=== PATIENT | female | born 1955 | race Caucasian/White ===

== ENCOUNTER 2016-08-21 13:10 | Inpatient (IN) | payer OTHER ==
[~2016-08-21] VITALS: Ht 157.5 cm; Wt 54.4 kg
[~2016-08-21 13:10] MED LIST: FLOXIN OTIC SOLN5 ML LEFT EAR; NAPROXEN500 MG PO; NEURONTIN100 MG PO; SEROQUEL50 MG PO
[2016-08-21 15:13] LABS: EOSINOPHIL (%) 0.2 % (0-5); HEMATOCRIT 23.6 % (36.0-46.0); IMMATURE GRANULOCYTE (%) 0.5 % (0.0-0.7); INSTRUMENT ABS NEUTROPHIL CT 4.1 K/uL; LYMPHOCYTE COUNT 1.7 K/uL (1.0-2.8); MCH 34.6 PG (29.0-34.0); MCHC 34.3 G/DL (30.0-36.0); MCV 100.9 FL (83-99); MEAN PLAT.VOLUME 9.9 uM^3 (9.5-12.4); MONOCYTE COUNT 0.6 K/uL (0-0.8); NEUTROPHIL (%) 63.5 % (45-76); NEUTROPHIL COUNT 4.1 K/uL (1.8-6.4); PLATELET COUNT 78 K/uL (156-360); RBC DIS.WIDTH-CV 13.2 % (11.8-14.6); RBC DIS.WIDTH-SD 48.8 % (39-53); RED BLOOD COUNT 2.34 M/uL (3.80-5.20); WHITE BLOOD COUNT 6.5 K/uL (4.1-10.2)
[2016-08-21 15:21] LABS: CHLORIDE 102 mEq/L (99-109); POTASSIUM 4.1 mEq/L (3.7-5.4); SODIUM 136 mEq/L (136-147)
[2016-08-21 15:22] LABS: AMYLASE 93 IU/L (1-118)
[2016-08-21 15:24] LABS: GLUCOSE 115 mg/dL (70-99)
[2016-08-21 15:25] LABS: ANION GAP 10 MEQ/L (2-14)
[2016-08-21 15:27] LABS: ALKALINE PHOSPHATASE 64 IU/L (3-129); GFR ESTIMATE (CALCULATED) > 59 mL/min/
[2016-08-21 15:28] LABS: UREA NITROGEN (BUN) 20 mg/dL (9-23)
[2016-08-21 15:31] LABS: LIPASE 43 U/L (1.0-51.0)
[2016-08-21 15:52] LABS: ADD MIUA? YES; BILIRUBIN NEGATIVE; BLOOD SMALL; COLOR AMBER ((YELLOW)); GLUCOSE (STRIP) NEGATIVE; KETONES 5; LEUKOCYTES NEGATIVE; NITRITE NEGATIVE; PROTEIN (STRIP) 30; SPECIFIC GRAVITY 1.016 (1.000-1.030)
[2016-08-21 16:25] LABS: BACTERIA 1+ /HPF; CASTS PRESENT /LPF; CRYSTALS NONE SEEN; EPITHELIAL CELLS 2+ /HPF; HYALINE CASTS 0-5 /LPF; MUCUS RARE /LPF
[2016-08-21] MEDS ORDERED: SEROQUEL12.5 MG PO (19:14)
[2016-08-21] MEDS ORDERED: B COMPLETE1 EACH PO (19:15)
[2016-08-21] MEDS ORDERED: ATARAX,VISTARIL25 MG PO (19:15)
[2016-08-21] MEDS ORDERED: MELATIN3 MG PO (19:16)
[2016-08-21 22:12] LABS: FERRITIN 139 NG/ML (10-291)
[2016-08-21 23:59] LABS: ABSOLUTE RETICULOCYTE CT. 0.1 M/uL (0.02-0.08); IMM.RETIC FRACTION 10.9 % (3-19); RETIC HGB EQUIVALENT 37.3 (28-36); RETICULOCYTE COUNT 3.8 % (0.5-1.8)
[2016-08-22] VITALS (8 sets, daily range): BP systolic 94–153; BP diastolic 46–82
[2016-08-22 06:47] LABS: GLOBULINS 4.7 G/DL (2.3-3.5)
[2016-08-22 07:04] LABS: HEMATOCRIT 20.3 % (36.0-46.0); MCH 35.2 PG (29.0-34.0); MCHC 34.5 G/DL (30.0-36.0); PLATELET COUNT 65 K/uL (156-360); RBC DIS.WIDTH-CV 13.1 % (11.8-14.6); RBC DIS.WIDTH-SD 48.2 % (39-53); RED BLOOD COUNT 1.99 M/uL (3.80-5.20); WHITE BLOOD COUNT 4.8 K/uL (4.1-10.2)
[2016-08-22 07:18] LABS: INTER. NORMALIZED RATIO 1.6; PROTHROMBIN TIME 16.7 (9.2-11.2); PTT 29.7 (25-32)
[2016-08-22 07:30] LABS: ALKALINE PHOSPHATASE 53 IU/L (3-129); ANION GAP 8 MEQ/L (2-14); CHLORIDE 106 MEQ/L (99-109); DIRECT BILIRUBIN 1.8 mg/dL (0.0-0.3); GFR ESTIMATE (CALCULATED) > 59 mL/min/; GLUCOSE 128 mg/dL (70-99); POTASSIUM 3.7 MEQ/L (3.7-5.4); SAMPLE HEMOLYSIS CHECK 0; SAMPLE ICTERIC CHECK 1; SAMPLE LIPEMIA CHECK 0; SODIUM 137 MEQ/L (136-147); TOTAL BILIRUBIN 4.4 MG/DL (0.0-1.0); UREA NITROGEN (BUN) 18 mg/dL (9-23)
[2016-08-23] VITALS (19 sets, daily range): BP systolic 109–163; BP diastolic 53–74
[2016-08-23 06:59] LABS: INTER. NORMALIZED RATIO 1.5; PTT 26.7 (25-32)
[2016-08-23 07:08] LABS: HEMATOCRIT 18.2 % (36.0-46.0); MCH 35.4 PG (29.0-34.0); MCHC 34.1 G/DL (30.0-36.0); MEAN PLAT.VOLUME 9.9 uM^3 (9.5-12.4); NRBC (%) 0.4 /100 WBC (0-0); RBC DIS.WIDTH-CV 13.1 % (11.8-14.6); RBC DIS.WIDTH-SD 49.8 % (39-53); RED BLOOD COUNT 1.75 M/uL (3.80-5.20); WHITE BLOOD COUNT 5.6 K/uL (4.1-10.2)
[2016-08-23 07:15] LABS: PLATELET COUNT 104 K/uL (156-360)
[2016-08-23 17:00] LABS: INTER. NORMALIZED RATIO 1.6; PROTHROMBIN TIME 16.1 (9.2-11.2)
[2016-08-23 17:18] LABS: BASELINE PT 16.1 SEC (9.9-11.1)
[2016-08-24 00:19] VITALS: BP 137/67
[2016-08-24 01:19] VITALS: BP 136/68
[2016-08-24 08:01] VITALS: BP 162/74
[2016-08-24 15:59] VITALS: BP 169/74
[2016-08-24 16:25] LABS: INTER. NORMALIZED RATIO 1.8; PROTHROMBIN TIME 18.3 (9.2-11.2); PTT 28.7 (25-32)
[2016-08-24 20:17] LABS: HEMATOCRIT 29.2 % (36.0-46.0); MCH 33.7 PG (29.0-34.0); MCHC 34.9 G/DL (30.0-36.0); MEAN PLAT.VOLUME 10.1 uM^3 (9.5-12.4); PLATELET COUNT 123 K/uL (156-360); RBC DIS.WIDTH-CV 15.7 % (11.8-14.6); RBC DIS.WIDTH-SD 54.2 % (39-53); WHITE BLOOD COUNT 6.6 K/uL (4.1-10.2)
[2016-08-24 20:19] LABS: MCV 96.4 FL (83-99); RED BLOOD COUNT 3.03 M/uL (3.80-5.20)
[2016-08-25 00:07] VITALS: BP 109/56
[2016-08-25 08:39] LABS: ALBUMIN 3.75 G/DL (3.6-4.9); ALBUMIN PERCENT 48.1 %; ALPHA-1 GLOBULIN 0.25 G/DL (0.15-0.40); ALPHA-1 PERCENT 3.2 %; ALPHA-2 GLOBULIN 0.56 G/DL (0.45-0.85); ALPHA-2 PERCENT 7.2 %; BETA PERCENT 6.5 %; SERUM GEL NO. 58-3
[2016-08-25 08:40] VITALS: BP 125/66
[2016-08-25 11:00] LABS: INTER. NORMALIZED RATIO 1.9; PROTHROMBIN TIME 19.4 (9.2-11.2); PTT 27.8 (25-32)
[2016-08-25 11:30] LABS: HCV RNA (LOG IU/mL) 2.55 (<1.18)
[2016-08-25 12:20] VITALS: BP 118/53
[2016-08-25 14:37] LABS: IFE GEL NO. 55-2
[2016-08-25 16:15] VITALS: BP 113/74
[2016-08-25 23:35] VITALS: BP 150/71
[2016-08-26 06:48] LABS: HEMATOCRIT 29.2 % (36.0-46.0); MCH 33.8 PG (29.0-34.0); MCHC 33.9 G/DL (30.0-36.0); MCV 99.7 FL (83-99); MEAN PLAT.VOLUME 9.8 uM^3 (9.5-12.4); PLATELET COUNT 127 K/uL (156-360); RBC DIS.WIDTH-CV 16.6 % (11.8-14.6); RBC DIS.WIDTH-SD 56.2 % (39-53); RED BLOOD COUNT 2.93 M/uL (3.80-5.20)
[2016-08-26 06:51] LABS: WHITE BLOOD COUNT 11.5 K/uL (4.1-10.2)
[2016-08-26 07:07] LABS: ANION GAP 4 MEQ/L (2-14); CHLORIDE 104 MEQ/L (99-109); GFR ESTIMATE (CALCULATED) > 59 mL/min/; GLUCOSE 149 mg/dL (70-99); POTASSIUM 4.2 MEQ/L (3.7-5.4); SAMPLE HEMOLYSIS CHECK 0; SAMPLE ICTERIC CHECK 1; SAMPLE LIPEMIA CHECK 0; SODIUM 137 MEQ/L (136-147); UREA NITROGEN (BUN) 17 mg/dL (9-23)
[2016-08-26 08:14] VITALS: BP 157/74
[2016-08-26 16:12] VITALS: BP 145/70
[2016-08-27] VITALS: BP 154/67
[2016-08-27 06:50] LABS: HEMATOCRIT 29.6 % (36.0-46.0); MCH 33.3 PG (29.0-34.0); MCHC 33.1 G/DL (30.0-36.0); MCV 100.7 FL (83-99); MEAN PLAT.VOLUME 9.8 uM^3 (9.5-12.4); PLATELET COUNT 114 K/uL (156-360); RBC DIS.WIDTH-CV 16.6 % (11.8-14.6); RBC DIS.WIDTH-SD 58.8 % (39-53); RED BLOOD COUNT 2.94 M/uL (3.80-5.20); WHITE BLOOD COUNT 11.2 K/uL (4.1-10.2)
[2016-08-27 08:00] VITALS: BP 151/79
[2016-08-27] MEDS ORDERED: VIGAMOX 0.60 DROP/3 BOTH EYES (11:16)
[2016-08-27] MEDS ORDERED: PREDNISONE20 MG PO (11:17)
== END 2016-08-27 15:08 | disposition home or self-care (01) | DRG 809 ==
LOC: EME 13:10 → EDOF 21:17 → 5SOUTH 21:17
PROVIDERS: Internal Medicine; Internal Medicine Hematology & Oncology; Physician Assistant
PROC: 30233L1 Transfusion of Nonautologous Fresh Plasma into Peripheral Vein, Percutaneous Approach (ICD-10-PCS; principal; 2016-08-22)
PROC: 30233R1 Transfusion of Nonautologous Platelets into Peripheral Vein, Percutaneous Approach (ICD-10-PCS; 2016-08-23)
PROC: 30233N1 Transfusion of Nonautologous Red Blood Cells into Peripheral Vein, Percutaneous Approach (ICD-10-PCS; 2016-08-23)
DX: D59.9 Acquired hemolytic anemia, unspecified (principal); E80.1 Porphyria cutanea tarda; D69.6 Thrombocytopenia, unspecified; E80.6 Other disorders of bilirubin metabolism; S70.12XA Contusion of left thigh, initial encounter; E83.110 Hereditary hemochromatosis; K76.89 Other specified diseases of liver; B18.2 Chronic viral hepatitis C; Y04.0XXA Assault by unarmed brawl or fight, initial encounter; F17.210 Nicotine dependence, cigarettes, uncomplicated; Y92.009 Unspecified place in unspecified non-institutional (private) residence as the place of occurrence of the external cause; Z91.19 Patient's noncompliance with other medical treatment and regimen
CPT/HCPCS: 70450; 71250; 73552; 73564; 73630; 74177; 80048; 80053; 80076; 81003; 81256 90; 82150; 82607; 82728; 82746; 83010 90; 83605; 83615; 83690; 83883 90; 84165; 85025; 85027; 85045; 85384; 85610; 85611; 85730; 86334; 86860; 86870; 86880; 86900; 86901; 86920; 87040; 87522 90; 99281; 99285; G0378; J1200; J1956; J2270; J3010; J7030; J7512; P9016; P9017; P9035; P9037; Q0177

== ENCOUNTER 2016-11-15 04:28 | Emergency (ER) | payer OTHER ==
[~2016-11-15] VITALS: Ht 157.5 cm; Wt 55.3 kg
[~2016-11-15 04:28] MED LIST changes: +ATARAX,VISTARIL25 MG PO; +B COMPLETE1 EACH PO; +MELATIN3 MG PO; +PREDNISONE20 MG PO; +SEROQUEL12.5 MG PO; +VIGAMOX 0.60 DROP/3 BOTH EYES
[2016-11-15 05:49] LABS: CHLORIDE 112 mEq/L (99-109); POTASSIUM 3.6 mEq/L (3.7-5.4); SODIUM 146 mEq/L (136-147)
[2016-11-15 05:51] LABS: GLUCOSE 157 mg/dL (70-99)
[2016-11-15 05:52] LABS: ANION GAP 11 MEQ/L (2-14)
[2016-11-15 05:53] LABS: TOTAL BILIRUBIN 2.8 mg/dL (0.0-1.0)
[2016-11-15 05:54] LABS: SERUM ETHYL ALCOHOL 315 mg/dL
[2016-11-15 05:55] LABS: ALKALINE PHOSPHATASE 97 IU/L (3-129); GFR ESTIMATE (CALCULATED) > 59 mL/min/
[2016-11-15 05:56] LABS: UREA NITROGEN (BUN) 11 mg/dL (9-23)
[2016-11-15 06:10] LABS: HEMATOCRIT 33.3 % (36.0-46.0); MCH 34.1 PG (29.0-34.0); MCHC 35.7 G/DL (30.0-36.0); MCV 95.4 FL (83-99); MEAN PLAT.VOLUME 9.4 uM^3 (9.5-12.4); PLATELET COUNT 108 K/uL (156-360); RBC DIS.WIDTH-CV 12.6 % (11.8-14.6); RBC DIS.WIDTH-SD 43.7 % (39-53); RED BLOOD COUNT 3.49 M/uL (3.80-5.20); WHITE BLOOD COUNT 5.3 K/uL (4.1-10.2)
[2016-11-15] MEDS ORDERED: KENALOG,ARISTOC15 G2 TP (06:57)
[2016-11-15] MEDS ORDERED: TRAZODONE HCL50 MG PO (06:58)
[2016-11-15 07:06] LABS: ADD MIUA? YES; BILIRUBIN NEGATIVE; BLOOD SMALL; COLOR YELLOW ((YELLOW)); GLUCOSE (STRIP) NEGATIVE; KETONES NEGATIVE; LEUKOCYTES NEGATIVE; NITRITE NEGATIVE; PROTEIN (STRIP) NEGATIVE; SPECIFIC GRAVITY 1.013 (1.000-1.030)
[2016-11-15 07:20] LABS: BACTERIA RARE /HPF; CALCIUM OXALATE CRYSTALS 1+ /HPF; EPITHELIAL CELLS 1+ /HPF; HYALINE CASTS 0-5 /LPF; MUCUS TRACE /LPF; RED BLOOD CELLS 0-5 /HPF (0-5); UCUL ADDED? NO; WHITE BLOOD CELLS 0-5 /HPF (0-5)
[2016-11-15 07:24] LABS: AMPHETAMINE NEGATIVE (500 ng/mL); BARBITURATES NEGATIVE (200 ng/mL); BENZODIAZEPINES NEGATIVE (150 ng/mL); COCAINE NEGATIVE (150 ng/mL); INTERNAL CONTROLS VALID? YES; METHADONE NEGATIVE (200 ng/mL); METHAMPHETAMINE NEGATIVE (500 ng/mL); OPIATES (MORPHINE) NEGATIVE (100 ng/mL); OXYCODONE NEGATIVE (100 ng/mL); PHENCYCLIDINE NEGATIVE (25 ng/mL); PROPOXYPHENE NEGATIVE (300 ng/mL); THC CANNABINOIDS NEGATIVE (50 ng/mL); TRICYCLIC ANTIDEPRESSANTS NEGATIVE (300 ng/mL)
[2016-11-15 14:37] VITALS: BP 143/67
== END 2016-11-15 14:38 | disposition home or self-care (01) ==
LOC: EME 04:28
PROVIDERS: Emergency Medicine
DX: F32.9 Major depressive disorder, single episode, unspecified (principal); R45.851 Suicidal ideations; F10.129 Alcohol abuse with intoxication, unspecified; Y90.8 Blood alcohol level of 240 mg/100 ml or more; F43.23 Adjustment disorder with mixed anxiety and depressed mood; F17.200 Nicotine dependence, unspecified, uncomplicated; Z91.410 Personal history of adult physical and sexual abuse
CPT/HCPCS: 80053; 81003; 85027; 90837; 99281; 99284; G0480; Q0177

== ENCOUNTER 2016-11-16 20:05 | Emergency (ER) | payer OTHER ==
[~2016-11-16] VITALS: Ht 157.5 cm; Wt 55.9 kg
[~2016-11-16 20:05] MED LIST changes: +KENALOG,ARISTOC15 G2 TP; +TRAZODONE HCL50 MG PO
[2016-11-16 20:49] VITALS: BP 127/77
== END 2016-11-16 20:50 | disposition left against medical advice (07) ==
LOC: EME → EDBD 20:05 → EME 20:05
DX: R53.81 Other malaise (principal); Z53.21 Procedure and treatment not carried out due to patient leaving prior to being seen by health care provider
CPT/HCPCS: 93005; 99281

== ENCOUNTER 2016-11-24 02:33 | Emergency (ER) | payer OTHER ==
[~2016-11-24] VITALS: Ht 157.5 cm; Wt 54.5 kg
[2016-11-24 03:14] LABS: EOSINOPHIL (%) 1.6 % (0-5); EOSINOPHIL COUNT 0.1 K/uL (0-0.3); HEMATOCRIT 35.7 % (36.0-46.0); IMMATURE GRANULOCYTE (%) 0.4 % (0.0-0.7); INSTRUMENT ABS NEUTROPHIL CT 3.3 K/uL; LYMPHOCYTE COUNT 4.2 K/uL (1.0-2.8); MCH 33.2 PG (29.0-34.0); MCHC 35.3 G/DL (30.0-36.0); MCV 93.9 FL (83-99); MONOCYTE (%) 6.6 % (3-12); MONOCYTE COUNT 0.5 K/uL (0-0.8); NEUTROPHIL (%) 39.9 % (45-76); NEUTROPHIL COUNT 3.3 K/uL (1.8-6.4); PLATELET COUNT 88 K/uL (156-360); RBC DIS.WIDTH-CV 13.7 % (11.8-14.6); RBC DIS.WIDTH-SD 46.5 % (39-53); WHITE BLOOD COUNT 8.1 K/uL (4.1-10.2)
[2016-11-24 03:25] LABS: CHLORIDE 113 mEq/L (99-109); POTASSIUM 4.1 mEq/L (3.7-5.4); SODIUM 148 mEq/L (136-147)
[2016-11-24 03:28] LABS: GLUCOSE 109 mg/dL (70-99)
[2016-11-24 03:29] LABS: ANION GAP 12 MEQ/L (2-14)
[2016-11-24 03:30] LABS: TOTAL BILIRUBIN 3.5 mg/dL (0.0-1.0)
[2016-11-24 03:31] LABS: SERUM ETHYL ALCOHOL 363 mg/dL
[2016-11-24 03:32] LABS: ALKALINE PHOSPHATASE 91 IU/L (3-129); GFR ESTIMATE (CALCULATED) > 59 mL/min/
[2016-11-24 03:34] LABS: UREA NITROGEN (BUN) 12 mg/dL (9-23)
[2016-11-24 03:35] LABS: SALICYLATE < 5.0 MG/DL (15-30)
[2016-11-24 09:26] LABS: AMPHETAMINE NEGATIVE (500 ng/mL); COCAINE NEGATIVE (150 ng/mL); METHAMPHETAMINE NEGATIVE (500 ng/mL); OPIATES (MORPHINE) NEGATIVE (100 ng/mL); PHENCYCLIDINE NEGATIVE (25 ng/mL); THC CANNABINOIDS NEGATIVE (50 ng/mL)
[2016-11-24 09:27] LABS: ADD MEDTOX COMMENT Y; BARBITURATES NEGATIVE (200 ng/mL); BENZODIAZEPINES PRESUMPTIVE POSITIVE (150 ng/mL); INTERNAL CONTROLS VALID? YES; METHADONE NEGATIVE (200 ng/mL); OXYCODONE NEGATIVE (100 ng/mL); PROPOXYPHENE NEGATIVE (300 ng/mL); TRICYCLIC ANTIDEPRESSANTS PRESUMPTIVE POSITIVE (300 ng/mL)
[2016-11-24 10:04] LABS: BENZODIAZEPINES QUANT VALUE 0 NG/ML; BENZODIAZEPINES, URINE SCREEN Negative (200 ng/mL)
[2016-11-24 14:56] VITALS: BP 144/81
== END 2016-11-24 14:56 | disposition home or self-care (01) ==
LOC: EME 02:33
PROVIDERS: Emergency Medicine
DX: F43.23 Adjustment disorder with mixed anxiety and depressed mood (principal); E80.20 Unspecified porphyria; F10.129 Alcohol abuse with intoxication, unspecified; Y90.8 Blood alcohol level of 240 mg/100 ml or more; R45.4 Irritability and anger; Z87.442 Personal history of urinary calculi; F17.200 Nicotine dependence, unspecified, uncomplicated
CPT/HCPCS: 80053; 84999; 85025; 90837; 99281; 99285; G0480; J2060

== ENCOUNTER 2016-12-19 21:59 | Emergency (ER) | payer OTHER ==
[~2016-12-19] VITALS: Ht 157.5 cm; Wt 54.5 kg
[2016-12-20] MEDS ORDERED: ATARAX,VISTARIL50 MG PO (00:11)
[2016-12-20] MEDS ORDERED: ATIVAN1 MG PO (00:11)
[2016-12-20 00:29] VITALS: BP 154/91
[2016-12-21] MEDS ORDERED: BENADRYL ITCH118 ML TP (20:53)
== END 2016-12-20 00:31 | disposition home or self-care (01) ==
LOC: EME 21:59
DX: L29.9 Pruritus, unspecified (principal); E80.20 Unspecified porphyria; F10.129 Alcohol abuse with intoxication, unspecified; Z91.19 Patient's noncompliance with other medical treatment and regimen
CPT/HCPCS: 99281; 99284; J2060; Q0177

== ENCOUNTER 2016-12-21 19:23 | Emergency (ER) | payer OTHER ==
[~2016-12-21] VITALS: Ht 157.5 cm; Wt 50.8 kg
[~2016-12-21 19:23] MED LIST changes: +ATARAX,VISTARIL50 MG PO; +ATIVAN1 MG PO
[2016-12-21] MEDS ORDERED: BENADRYL ITCH118 ML TP (20:53)
[2016-12-21 21:37] VITALS: BP 152/65
== END 2016-12-21 21:40 | disposition home or self-care (01) ==
LOC: EME → EDBD 19:23 → EME 21:40
DX: L29.9 Pruritus, unspecified (principal); F10.129 Alcohol abuse with intoxication, unspecified; E80.20 Unspecified porphyria; Z91.19 Patient's noncompliance with other medical treatment and regimen
CPT/HCPCS: 99281; 99284; J1200

== ENCOUNTER 2017-01-26 11:05 | Emergency (ER) | payer OTHER ==
[~2017-01-26] VITALS: Ht 157.5 cm; Wt 54.5 kg
[~2017-01-26 11:05] MED LIST changes: +BENADRYL ITCH118 ML TP
[2017-01-26 12:29] LABS: HEMATOCRIT 22.8 % (36.0-46.0); MCH 35.8 PG (29.0-34.0); MCHC 35.5 G/DL (30.0-36.0); MCV 100.9 FL (83-99); MEAN PLAT.VOLUME 10.9 uM^3 (9.5-12.4); PLATELET COUNT 74 K/uL (156-360); RBC DIS.WIDTH-CV 17.2 % (11.8-14.6); RBC DIS.WIDTH-SD 62.4 % (39-53); RED BLOOD COUNT 2.26 M/uL (3.80-5.20); WHITE BLOOD COUNT 5.3 K/uL (4.1-10.2)
[2017-01-26 12:39] LABS: CHLORIDE 95 mEq/L (99-109); POTASSIUM 3.9 mEq/L (3.7-5.4); SODIUM 130 mEq/L (136-147)
[2017-01-26 12:42] LABS: GLUCOSE 152 mg/dL (70-99)
[2017-01-26 12:43] LABS: ANION GAP 10 MEQ/L (2-14); TOTAL BILIRUBIN > 23.5 mg/dL (0.0-1.0)
[2017-01-26 12:44] LABS: SERUM ETHYL ALCOHOL < 10 mg/dL
[2017-01-26 12:45] LABS: ALKALINE PHOSPHATASE 91 IU/L (3-129); GFR ESTIMATE (CALCULATED) 18 mL/min/
[2017-01-26 12:46] LABS: UREA NITROGEN (BUN) 42 mg/dL (9-23)
[2017-01-26 13:45] LABS: INTER. NORMALIZED RATIO 2.3; PROTHROMBIN TIME 26.6 SEC (10.2-12.9)
[2017-01-26 13:48] LABS: ADD MIUA? YES; BILIRUBIN MODERATE; BLOOD MODERATE; COLOR AMBER ((YELLOW)); GLUCOSE (STRIP) 50; KETONES NEGATIVE; LEUKOCYTES SMALL; NITRITE POSITIVE; PROTEIN (STRIP) 30; SPECIFIC GRAVITY 1.015 (1.000-1.030)
[2017-01-26 13:53] LABS: ICTOTEST POSITIVE
[2017-01-26 13:55] LABS: BACTERIA 2+ /HPF; EPITHELIAL CELLS 3+ /HPF; MUCUS NONE SEEN /LPF; RED BLOOD CELLS 0-5 /HPF (0-5); UCUL ADDED? YES; WHITE BLOOD CELLS 15-20 /HPF (0-5)
[2017-01-26 13:58] LABS: PTT 40.5 SEC (25-37)
[2017-01-26 14:24] LABS: HBSG INDEX 0.24
[2017-01-26 14:26] LABS: ANTI-HEPATITIS A VIRUS (IGM) Nonreactive; ANTI-HEPATITIS B CORE (IGM) Nonreactive; HBC IgM INDEX 0.78
[2017-01-26 14:35] LABS: HPCA INDEX 6.09
[2017-01-26] MEDS ORDERED: CLEAR EYES REDN30 M1 BOTH EYES (16:54)
[2017-01-26 21:58] VITALS: BP 124/64
[2017-01-28 22:50] LABS: LD-1/LD-2 RATIO 0.69 (())
== END 2017-01-26 22:00 | disposition short-term general hospital (02) ==
LOC: EME 11:05
PROVIDERS: Emergency Medicine
DX: K72.00 Acute and subacute hepatic failure without coma (principal); K92.2 Gastrointestinal hemorrhage, unspecified; K74.60 Unspecified cirrhosis of liver; F17.200 Nicotine dependence, unspecified, uncomplicated; Z87.442 Personal history of urinary calculi
CPT/HCPCS: 80053; 80074; 81003; 82248; 83615 90; 83625 90; 85027; 85610; 85730; 87077; 87086; 87186; 99281; 99285; G0480; J0696; J2270; J2405; J7030; J7050

== ENCOUNTER 2017-05-08 03:28 | Inpatient (IN) | payer BC ==
[~2017-05-08] VITALS: Ht 157.5 cm; Wt 55.2 kg
[~2017-05-08 03:28] MED LIST changes: +CLEAR EYES REDN30 M1 BOTH EYES
[2017-05-08] MEDS ORDERED: VENTOLIN HFA18 GM IH (03:56)
[2017-05-08] MEDS ORDERED: MOTRIN800 MG PO (03:56)
[2017-05-08] MEDS ORDERED: NASAL DECONGEST30 MG PO (03:57)
[2017-05-08 04:06] LABS: INTER. NORMALIZED RATIO 1.6
[2017-05-08 04:09] LABS: PTT 34.8 SEC (25-37)
[2017-05-08 04:11] LABS: CHLORIDE 111 mEq/L (99-109); SODIUM 131 mEq/L (136-147)
[2017-05-08 04:12] LABS: MAGNESIUM 1.1 mg/dL (1.3-2.7)
[2017-05-08 04:14] LABS: GLUCOSE 146 mg/dL (70-99); TOTAL PROTEIN 6.9 g/dL (6.4-8.3)
[2017-05-08 04:15] LABS: TOTAL BILIRUBIN 4.8 mg/dL (0.0-1.0)
[2017-05-08 04:16] LABS: SERUM ETHYL ALCOHOL < 10 mg/dL
[2017-05-08 04:17] LABS: ALKALINE PHOSPHATASE 75 IU/L (3-129); CREATININE 1.5 mg/dL (0.6-1.3); GFR ESTIMATE (CALCULATED) 37 mL/min/
[2017-05-08 04:18] LABS: UREA NITROGEN (BUN) 20 mg/dL (9-23)
[2017-05-08 04:19] LABS: AST (GOT) 25 IU/L (2-34)
[2017-05-08 04:20] LABS: ALT (GPT) 20 IU/L (3-49)
[2017-05-08 04:21] LABS: POTASSIUM 5.2 mEq/L (3.7-5.4)
[2017-05-08 04:22] LABS: BASOPHIL (%) 0.2 % (0-1); EOSINOPHIL (%) 0.1 % (0-5); HEMATOCRIT 24.4 % (36.0-46.0); HEMOGLOBIN 8.6 G/DL (11.9-15.5); IMMATURE GRANULOCYTE (%) 0.5 % (0.0-0.7); LYMPHOCYTE (%) 8.6 % (15-42); LYMPHOCYTE COUNT 0.7 K/uL (1.0-2.8); MCH 33.7 PG (29.0-34.0); MCHC 35.2 G/DL (30.0-36.0); MONOCYTE (%) 4.4 % (3-12); MONOCYTE COUNT 0.4 K/uL (0-0.8); NEUTROPHIL (%) 86.2 % (45-76); NEUTROPHIL COUNT 7.4 K/uL (1.8-6.4); PLATELET COUNT 95 K/uL (156-360); RBC DIS.WIDTH-CV 14.3 % (11.8-14.6); RED BLOOD COUNT 2.55 M/uL (3.80-5.20); WHITE BLOOD COUNT 8.6 K/uL (4.1-10.2)
[2017-05-08 04:26] LABS: MCV 95.7 FL (83-99)
[2017-05-08 06:09] LABS: BASE EXCESS -7.5 mEq/L (-3 to +3); BICARBONATE 14.5 mEq/L (22-26); CARBOXY HGB 2.5 % (0-5); COMMENTS - BLOOD GASES A+C+; DEVICE RA; METHEMOGLOBIN 1.3 % (0-1.5); PCO2 19 mm Hg (35-45); PO2 101 mm Hg (80-100); SITE RR; TOTAL RESP RATE 16 resp/min; pH 7.49 (7.35-7.45)
[2017-05-08] MEDS ORDERED: CONSTULOSE10 GM/15 M PO (06:22)
[2017-05-08] MEDS ORDERED: FOLIC ACID1 MG PO (06:24)
[2017-05-08] MEDS ORDERED: ZOFRAN4 MG PO (06:24)
[2017-05-08] MEDS ORDERED: ALDACTONE100 MG PO (06:25)
[2017-05-08] MEDS ORDERED: POTASSIUM CHLO20 ME1 PO (06:25)
[2017-05-08 06:58] LABS: PHOSPHORUS 2.9 mg/dL (2.5-4.9)
[2017-05-08 08:25] LABS: APPEARANCE CLOUDY ((CLEAR)); BILIRUBIN NEGATIVE; BLOOD LARGE; COLOR AMBER ((YELLOW)); GLUCOSE (STRIP) NEGATIVE; KETONES NEGATIVE; LEUKOCYTES LARGE; NITRITE NEGATIVE; PROTEIN (STRIP) 100; SPECIFIC GRAVITY 1.012 (1.000-1.030); UROBILINOGEN 0.2 MG/DL (0.2-1.0)
[2017-05-08 08:56] LABS: BACTERIA 2+ /HPF; EPITHELIAL CELLS 1+ /HPF; MUCUS NONE SEEN /LPF; UCUL ADDED? YES; WHITE BLOOD CELLS TNTC /HPF (0-5)
[2017-05-08] MEDS ORDERED: XIFAXAN550 MG PO (09:19)
[2017-05-08 09:20] VITALS: BP 106/51
[2017-05-08] MEDS ORDERED: VITAMIN B-1100 MG PO (09:20)
[2017-05-08] MEDS ORDERED: GAVILYTE-N SO4000 ML PO (09:22)
[2017-05-08 13:55] LABS: ALBUMIN 2.6 G/DL (3.2-4.8); ALKALINE PHOSPHATASE 66 IU/L (3-129); ALT (GPT) 15 IU/L (3-49); AST (GOT) 22 IU/L (2-34); CHLORIDE 114 MEQ/L (99-109); CREATININE 1.6 MG/DL (0.6-1.3); GFR ESTIMATE (CALCULATED) 35 mL/min/; GLUCOSE 153 mg/dL (70-99); MAGNESIUM 2.7 mg/dl (1.3-2.7); PHOSPHORUS 3.9 mg/dL (2.5-4.9); POTASSIUM 4.6 MEQ/L (3.7-5.4); SODIUM 134 MEQ/L (136-147); UREA NITROGEN (BUN) 24 mg/dL (9-23)
[2017-05-08 15:58] LABS: LIPASE 150 U/L (1.0-51.0)
[2017-05-08 20:08] VITALS: BP 104/52
[2017-05-09] VITALS (7 sets, daily range): BP systolic 92–187; BP diastolic 49–86
[2017-05-09 06:18] LABS: HEMATOCRIT 23.5 % (36.0-46.0); HEMOGLOBIN 8.2 G/DL (11.9-15.5); MCH 34.2 PG (29.0-34.0); MCHC 34.9 G/DL (30.0-36.0); MCV 97.9 FL (83-99); PLATELET COUNT 72 K/uL (156-360); RBC DIS.WIDTH-CV 14.6 % (11.8-14.6); RBC DIS.WIDTH-SD 52.6 % (39-53); WHITE BLOOD COUNT 14.5 K/uL (4.1-10.2)
[2017-05-09 06:47] LABS: ALBUMIN 2.1 G/DL (3.2-4.8); ALKALINE PHOSPHATASE 66 IU/L (3-129); ALT (GPT) 13 IU/L (3-49); AST (GOT) 17 IU/L (2-34); CHLORIDE 113 MEQ/L (99-109); CREATININE 1.5 MG/DL (0.6-1.3); DIRECT BILIRUBIN 1.4 mg/dL (0.0-0.3); GFR ESTIMATE (CALCULATED) 37 mL/min/; GLUCOSE 169 mg/dL (70-99); LIPASE 127 U/L (1.0-51.0); POTASSIUM 4.7 MEQ/L (3.7-5.4); SODIUM 134 MEQ/L (136-147); TOTAL PROTEIN 5.2 G/DL (6.4-8.3); UREA NITROGEN (BUN) 27 mg/dL (9-23)
[2017-05-09 06:57] LABS: TOTAL BILIRUBIN 2.6 MG/DL (0.0-1.0)
[2017-05-10 06:44] LABS: HEMATOCRIT 20.9 % (36.0-46.0); HEMOGLOBIN 7.2 G/DL (11.9-15.5); MCHC 34.4 G/DL (30.0-36.0); MCV 98.6 FL (83-99); PLATELET COUNT 55 K/uL (156-360); RBC DIS.WIDTH-CV 14.7 % (11.8-14.6); RBC DIS.WIDTH-SD 53.1 % (39-53); RED BLOOD COUNT 2.12 M/uL (3.80-5.20); WHITE BLOOD COUNT 5.4 K/uL (4.1-10.2)
[2017-05-10 07:15] LABS: CHLORIDE 112 MEQ/L (99-109); CREATININE 1.4 MG/DL (0.6-1.3); GFR ESTIMATE (CALCULATED) 40 mL/min/; GLUCOSE 174 mg/dL (70-99); SODIUM 135 MEQ/L (136-147); UREA NITROGEN (BUN) 24 mg/dL (9-23)
[2017-05-10 07:17] LABS: POTASSIUM 3.7 MEQ/L (3.7-5.4)
[2017-05-10 07:29] VITALS: BP 116/53
[2017-05-10 10:59] VITALS: BP 118/58
[2017-05-10 15:15] VITALS: BP 124/58
[2017-05-10 15:22] VITALS: BP 125/58
[2017-05-10 19:00] VITALS: BP 112/47
[2017-05-11] VITALS (10 sets, daily range): BP systolic 110–152; BP diastolic 48–66
[2017-05-11 09:49] LABS: BASOPHIL (%) 0.3 % (0-1); EOSINOPHIL (%) 3.2 % (0-5); EOSINOPHIL COUNT 0.1 K/uL (0-0.3); HEMATOCRIT 19.5 % (36.0-46.0); LYMPHOCYTE (%) 16.6 % (15-42); LYMPHOCYTE COUNT 0.5 K/uL (1.0-2.8); MCH 33.7 PG (29.0-34.0); MCHC 34.4 G/DL (30.0-36.0); MONOCYTE (%) 9.9 % (3-12); MONOCYTE COUNT 0.3 K/uL (0-0.8); NEUTROPHIL COUNT 2.2 K/uL (1.8-6.4); RBC DIS.WIDTH-CV 14.6 % (11.8-14.6); RBC DIS.WIDTH-SD 51.7 % (39-53); RED BLOOD COUNT 1.99 M/uL (3.80-5.20); WHITE BLOOD COUNT 3.1 K/uL (4.1-10.2)
[2017-05-11 09:58] LABS: HEMOGLOBIN 6.7 G/DL (11.9-15.5)
[2017-05-11 10:16] LABS: PLATELET COUNT 53 K/uL (156-360)
[2017-05-11 10:52] LABS: ALBUMIN 2.9 G/DL (3.2-4.8); ALKALINE PHOSPHATASE 50 IU/L (3-129); ALT (GPT) 11 IU/L (3-49); AST (GOT) 17 IU/L (2-34); CHLORIDE 110 MEQ/L (99-109); CREATININE 1.1 MG/DL (0.6-1.3); GFR ESTIMATE (CALCULATED) 53 mL/min/; GLUCOSE 194 mg/dL (70-99); LIPASE 155 U/L (1.0-51.0); POTASSIUM 3.7 MEQ/L (3.7-5.4); SODIUM 136 MEQ/L (136-147); TOTAL BILIRUBIN 2.3 MG/DL (0.0-1.0); TOTAL PROTEIN 5.3 G/DL (6.4-8.3); UREA NITROGEN (BUN) 18 mg/dL (9-23)
[2017-05-11 10:57] LABS: MAGNESIUM 1.8 mg/dl (1.3-2.7)
[2017-05-11 20:52] LABS: STOOL OCCULT BLD 1ST SPECIMEN NEGATIVE
[2017-05-12 00:23] VITALS: BP 116/56
[2017-05-12 04:02] VITALS: BP 117/58
[2017-05-12 06:45] LABS: BASOPHIL (%) 0.3 % (0-1); EOSINOPHIL (%) 3.6 % (0-5); EOSINOPHIL COUNT 0.1 K/uL (0-0.3); HEMATOCRIT 21.7 % (36.0-46.0); HEMOGLOBIN 7.7 G/DL (11.9-15.5); IMMATURE GRANULOCYTE (%) 0.3 % (0.0-0.7); LYMPHOCYTE (%) 20.8 % (15-42); LYMPHOCYTE COUNT 0.8 K/uL (1.0-2.8); MCH 32.5 PG (29.0-34.0); MCHC 35.5 G/DL (30.0-36.0); MCV 91.6 FL (83-99); MONOCYTE (%) 13.5 % (3-12); MONOCYTE COUNT 0.5 K/uL (0-0.8); NEUTROPHIL (%) 61.5 % (45-76); NEUTROPHIL COUNT 2.4 K/uL (1.8-6.4); PLATELET COUNT 59 K/uL (156-360); RBC DIS.WIDTH-CV 15.4 % (11.8-14.6); RBC DIS.WIDTH-SD 51.8 % (39-53); RED BLOOD COUNT 2.37 M/uL (3.80-5.20); WHITE BLOOD COUNT 3.9 K/uL (4.1-10.2)
[2017-05-12 07:01] LABS: ALBUMIN 2.7 G/DL (3.2-4.8); ALKALINE PHOSPHATASE 69 IU/L (3-129); ALT (GPT) 9 IU/L (3-49); AST (GOT) 17 IU/L (2-34); CHLORIDE 112 MEQ/L (99-109); GFR ESTIMATE (CALCULATED) > 59 mL/min/; GLUCOSE 191 mg/dL (70-99); LIPASE 203 U/L (1.0-51.0); MAGNESIUM 1.8 mg/dl (1.3-2.7); POTASSIUM 4.2 MEQ/L (3.7-5.4); SODIUM 138 MEQ/L (136-147); TOTAL PROTEIN 5.1 G/DL (6.4-8.3); UREA NITROGEN (BUN) 18 mg/dL (9-23)
[2017-05-12 07:02] LABS: TOTAL BILIRUBIN 2.9 MG/DL (0.0-1.0)
[2017-05-12 08:09] VITALS: BP 129/59
[2017-05-12 12:42] VITALS: BP 141/58
[2017-05-12 16:57] VITALS: BP 129/57
[2017-05-12 23:49] VITALS: BP 120/58
[2017-05-13 00:12] LABS: C DIFF TOXIN NEGATIVE (NEGATIVE)
[2017-05-13 08:04] LABS: INTER. NORMALIZED RATIO 1.6
[2017-05-13 08:05] VITALS: BP 115/55
[2017-05-13 10:32] LABS: TYPE OF FLUID PARACENTESIS
[2017-05-13 11:33] LABS: APPEARANCE YELLOW-CLEAR; BODY FLUID RBC'S 1000 /MM^3 (0-100); BODY FLUID WBC'S 220 /MM^3 (0-500)
[2017-05-13 11:38] LABS: BODY FLUID EOSINOPHILS 0 % (0-25); MONONUCLEAR WBC'S 30 %; POLYNUCLEAR WBC'S 70 % (0-25)
[2017-05-13 16:43] VITALS: BP 137/57
[2017-05-13 23:49] VITALS: BP 114/53
[2017-05-14] VITALS (8 sets, daily range): BP systolic 101–140; BP diastolic 51–64
[2017-05-14 08:03] LABS: HEMATOCRIT 20.9 % (36.0-46.0); HEMOGLOBIN 7.2 G/DL (11.9-15.5); MCH 31.9 PG (29.0-34.0); MCHC 34.4 G/DL (30.0-36.0); MCV 92.5 FL (83-99); PLATELET COUNT 76 K/uL (156-360); RBC DIS.WIDTH-CV 15.8 % (11.8-14.6); RBC DIS.WIDTH-SD 53.2 % (39-53); RED BLOOD COUNT 2.26 M/uL (3.80-5.20); WHITE BLOOD COUNT 3.7 K/uL (4.1-10.2)
[2017-05-14 12:23] LABS: ALBUMIN 2.9 G/DL (3.2-4.8); ALKALINE PHOSPHATASE 76 IU/L (3-129); ALT (GPT) 11 IU/L (3-49); AST (GOT) 20 IU/L (2-34); CHLORIDE 110 MEQ/L (99-109); CREATININE 1.1 MG/DL (0.6-1.3); GFR ESTIMATE (CALCULATED) 53 mL/min/; POTASSIUM 3.7 MEQ/L (3.7-5.4); SODIUM 142 MEQ/L (136-147); TOTAL PROTEIN 5.5 G/DL (6.4-8.3); UREA NITROGEN (BUN) 19 mg/dL (9-23)
[2017-05-14 12:34] LABS: GLUCOSE 115 mg/dL (70-99); TOTAL BILIRUBIN 2.1 MG/DL (0.0-1.0)
[2017-05-14 19:23] LABS: HEMATOCRIT 27.6 % (36.0-46.0); MCV 93.9 FL (83-99)
[2017-05-14 19:39] LABS: HEMOGLOBIN 9.4 G/DL (11.9-15.5)
[2017-05-15 07:32] VITALS: BP 134/61
[2017-05-15] MEDS ORDERED: FUROSEMIDE40 MG PO (14:56)
[2017-05-15] MEDS ORDERED: CONSTULOSE10 GM/15 M PO (14:56)
[2017-05-15] MEDS ORDERED: CIPROFLOXACIN250 MG PO (14:57)
== END 2017-05-15 16:30 | disposition home health service (06) | DRG 871 ==
LOC: EME → EDBD 03:28 → EME 03:28 → 5SOUTH 05:55 → EDOF 05:55 → ENRESERV 05:59 → 5SOUTH 09:11
PROVIDERS: Emergency Medicine; Hospitalist; Internal Medicine; Internal Medicine Gastroenterology; Physician Assistant; Physician Assistant Medical
PROC: 30233N1 Transfusion of Nonautologous Red Blood Cells into Peripheral Vein, Percutaneous Approach (ICD-10-PCS; 2017-05-11)
PROC: 0W9G3ZZ Drainage of Peritoneal Cavity, Percutaneous Approach (ICD-10-PCS; principal; 2017-05-13)
DX: A41.51 Sepsis due to Escherichia coli [E. coli] (principal); K72.00 Acute and subacute hepatic failure without coma; N39.0 Urinary tract infection, site not specified; N17.9 Acute kidney failure, unspecified; E87.1 Hypo-osmolality and hyponatremia; E87.4 Mixed disorder of acid-base balance; E80.20 Unspecified porphyria; D68.4 Acquired coagulation factor deficiency; D58.9 Hereditary hemolytic anemia, unspecified; D62 Acute posthemorrhagic anemia; E80.1 Porphyria cutanea tarda; K76.6 Portal hypertension; R65.11 Systemic inflammatory response syndrome (SIRS) of non-infectious origin with acute organ dysfunction; B18.2 Chronic viral hepatitis C; F17.210 Nicotine dependence, cigarettes, uncomplicated; R32 Unspecified urinary incontinence; N18.3 Chronic kidney disease, stage 3 (moderate); M41.9 Scoliosis, unspecified; K52.9 Noninfective gastroenteritis and colitis, unspecified; K70.31 Alcoholic cirrhosis of liver with ascites; K59.00 Constipation, unspecified; E87.8 Other disorders of electrolyte and fluid balance, not elsewhere classified; E87.6 Hypokalemia; E86.0 Dehydration; E83.42 Hypomagnesemia; D69.6 Thrombocytopenia, unspecified; K80.20 Calculus of gallbladder without cholecystitis without obstruction; F10.21 Alcohol dependence, in remission; Z91.19 Patient's noncompliance with other medical treatment and regimen; B96.20 Unspecified Escherichia coli [E. coli] as the cause of diseases classified elsewhere; F41.9 Anxiety disorder, unspecified; F32.9 Major depressive disorder, single episode, unspecified; G47.00 Insomnia, unspecified; Y90.0 Blood alcohol level of less than 20 mg/100 ml; R16.0 Hepatomegaly, not elsewhere classified; Z91.14 Patient's other noncompliance with medication regimen; Z87.11 Personal history of peptic ulcer disease; Z87.442 Personal history of urinary calculi; Z82.0 Family history of epilepsy and other diseases of the nervous system; Z81.8 Family history of other mental and behavioral disorders; Z83.79 Family history of other diseases of the digestive system
CPT/HCPCS: 36415; 36600; 49083; 71045; 74176; 80048; 80053; 81003; 82105 90; 82140; 82248; 82272; 82803; 82948; 83010 90; 83605; 83615; 83690; 83735; 84100; 84157; 85014; 85018; 85025; 85027; 85610; 85730; 86850; 86900; 86901; 86920; 87040; 87077; 87086; 87186; 87493; 87522 90; 87801; 89051; 93005; G0480; J0696; J1644; J2405; J3475; J7030; J7120; P9016; P9047; S0028

== ENCOUNTER 2017-06-21 10:10 | Inpatient (IN) | payer BC ==
[~2017-06-21] VITALS: Ht 157.5 cm; Wt 49.0 kg
[~2017-06-21 10:10] MED LIST changes: +ALDACTONE100 MG PO; +CIPROFLOXACIN250 MG PO; +CONSTULOSE10 GM/15 M PO; +FOLIC ACID1 MG PO; +FUROSEMIDE40 MG PO; +GAVILYTE-N SO4000 ML PO; +MOTRIN800 MG PO; +NASAL DECONGEST30 MG PO; +POTASSIUM CHLO20 ME1 PO; +VENTOLIN HFA18 GM IH; +VITAMIN B-1100 MG PO; +XIFAXAN550 MG PO; +ZOFRAN4 MG PO
[2017-06-21 11:30] LABS: BASOPHIL (%) 0.5 % (0-1); EOSINOPHIL (%) 0.8 % (0-5); EOSINOPHIL COUNT 0.1 K/uL (0-0.3); HEMATOCRIT 29.5 % (36.0-46.0); HEMOGLOBIN 10.4 G/DL (11.9-15.5); IMMATURE GRANULOCYTE (%) 0.3 % (0.0-0.7); LYMPHOCYTE (%) 19.2 % (15-42); LYMPHOCYTE COUNT 1.4 K/uL (1.0-2.8); MCH 34.2 PG (29.0-34.0); MCHC 35.3 G/DL (30.0-36.0); MONOCYTE (%) 6.4 % (3-12); MONOCYTE COUNT 0.5 K/uL (0-0.8); NEUTROPHIL (%) 72.8 % (45-76); NEUTROPHIL COUNT 5.3 K/uL (1.8-6.4); PLATELET COUNT 124 K/uL (156-360); RBC DIS.WIDTH-CV 15.3 % (11.8-14.6); RED BLOOD COUNT 3.04 M/uL (3.80-5.20); WHITE BLOOD COUNT 7.3 K/uL (4.1-10.2)
[2017-06-21 11:38] LABS: ALBUMIN 3.6 g/dL (3.2-4.8); INTER. NORMALIZED RATIO 1.3
[2017-06-21 11:39] LABS: CHLORIDE 110 mEq/L (99-109); POTASSIUM 5.5 mEq/L (3.7-5.4); SODIUM 139 mEq/L (136-147)
[2017-06-21 11:41] LABS: GLUCOSE 152 mg/dL (70-99); TOTAL PROTEIN 8.6 g/dL (6.4-8.3)
[2017-06-21 11:43] LABS: TOTAL BILIRUBIN 6.4 mg/dL (0.0-1.0)
[2017-06-21 11:44] LABS: ALKALINE PHOSPHATASE 115 IU/L (3-129)
[2017-06-21 11:45] LABS: CREATININE 2.3 mg/dL (0.6-1.3); GFR ESTIMATE (CALCULATED) 23 mL/min/
[2017-06-21 11:46] LABS: AST (GOT) 86 IU/L (2-34); UREA NITROGEN (BUN) 26 mg/dL (9-23)
[2017-06-21 11:47] LABS: ALT (GPT) 79 IU/L (3-49)
[2017-06-21 11:48] LABS: LIPASE 123 U/L (1.0-51.0)
[2017-06-21 11:58] LABS: APPEARANCE CLEAR ((CLEAR)); BILIRUBIN NEGATIVE; BLOOD NEGATIVE; COLOR YELLOW ((YELLOW)); GLUCOSE (STRIP) NEGATIVE; KETONES NEGATIVE; LEUKOCYTES NEGATIVE; NITRITE NEGATIVE; PROTEIN (STRIP) NEGATIVE; SPECIFIC GRAVITY 1.015 (1.000-1.030); UCUL ADDED? NO; UROBILINOGEN 0.2 MG/DL (0.2-1.0)
[2017-06-21] MEDS ORDERED: PRILOSEC20 MG PO (12:37)
[2017-06-21] MEDS ORDERED: CIPRO250 MG PO (12:40)
[2017-06-21] MEDS ORDERED: K-DUR20 MEQ PO (12:41)
[2017-06-21] MEDS ORDERED: LEXAPRO5 MG PO (12:42)
[2017-06-21 12:58] LABS: AMPHETAMINE NEGATIVE (500 ng/mL); BARBITURATES NEGATIVE (200 ng/mL); BENZODIAZEPINES NEGATIVE (150 ng/mL); BUPRENORPHINE NEGATIVE (10 ng/mL); COCAINE NEGATIVE (150 ng/mL); METHADONE NEGATIVE (200 ng/mL); METHAMPHETAMINE NEGATIVE (500 ng/mL); OPIATES (MORPHINE) NEGATIVE (100 ng/mL); OXYCODONE NEGATIVE (100 ng/mL); PHENCYCLIDINE NEGATIVE (25 ng/mL); PROPOXYPHENE NEGATIVE (300 ng/mL); THC CANNABINOIDS NEGATIVE (50 ng/mL); TRICYCLIC ANTIDEPRESSANTS PRESUMPTIVE POSITIVE (300 ng/mL)
[2017-06-21 14:57] VITALS: BP 131/60
[2017-06-21 15:37] LABS: FOLIC ACID (FOLATE) > 22.0 NG/ML (5.0-22.0)
[2017-06-21 20:00] VITALS: BP 128/60
[2017-06-21 20:45] LABS: CHLORIDE 110 MEQ/L (99-109); CREATININE 1.9 MG/DL (0.6-1.3); GFR ESTIMATE (CALCULATED) 28 mL/min/; GLUCOSE 193 mg/dL (70-99); SODIUM 140 MEQ/L (136-147); UREA NITROGEN (BUN) 24 mg/dL (9-23)
[2017-06-21 20:46] LABS: POTASSIUM 4.3 MEQ/L (3.7-5.4)
[2017-06-22] VITALS (8 sets, daily range): BP systolic 113–130; BP diastolic 54–61
[2017-06-22 05:36] LABS: BASOPHIL (%) 0.5 % (0-1); EOSINOPHIL (%) 1.5 % (0-5); EOSINOPHIL COUNT 0.1 K/uL (0-0.3); HEMATOCRIT 24.7 % (36.0-46.0); IMMATURE GRANULOCYTE (%) 0.2 % (0.0-0.7); LYMPHOCYTE COUNT 1.6 K/uL (1.0-2.8); MCH 33.8 PG (29.0-34.0); MCHC 32.8 G/DL (30.0-36.0); MONOCYTE (%) 9.5 % (3-12); MONOCYTE COUNT 0.4 K/uL (0-0.8); NEUTROPHIL (%) 49.3 % (45-76); PLATELET COUNT 87 K/uL (156-360); RBC DIS.WIDTH-CV 15.4 % (11.8-14.6); RBC DIS.WIDTH-SD 57.5 % (39-53); WHITE BLOOD COUNT 4.1 K/uL (4.1-10.2)
[2017-06-22 05:37] LABS: HEMOGLOBIN 8.1 G/DL (11.9-15.5); MCV 102.9 FL (83-99)
[2017-06-22 06:01] LABS: ALBUMIN 2.6 G/DL (3.2-4.8); ALT (GPT) 49 IU/L (3-49); CHLORIDE 118 MEQ/L (99-109); CREATININE 1.8 MG/DL (0.6-1.3); GFR ESTIMATE (CALCULATED) 30 mL/min/; SODIUM 142 MEQ/L (136-147); TOTAL BILIRUBIN 3.2 MG/DL (0.0-1.0); UREA NITROGEN (BUN) 21 mg/dL (9-23)
[2017-06-22 06:04] LABS: ALKALINE PHOSPHATASE 71 IU/L (3-129); AST (GOT) 59 IU/L (2-34); GLUCOSE 108 mg/dL (70-99); POTASSIUM 5.2 MEQ/L (3.7-5.4)
[2017-06-23 08:04] VITALS: BP 108/62
[2017-06-23 08:07] LABS: HEMATOCRIT 24.6 % (36.0-46.0); HEMOGLOBIN 8.3 G/DL (11.9-15.5); MCH 33.5 PG (29.0-34.0); MCHC 33.7 G/DL (30.0-36.0); MCV 99.2 FL (83-99); PLATELET COUNT 83 K/uL (156-360); RBC DIS.WIDTH-CV 14.9 % (11.8-14.6); RBC DIS.WIDTH-SD 54.2 % (39-53); RED BLOOD COUNT 2.48 M/uL (3.80-5.20); WHITE BLOOD COUNT 3.7 K/uL (4.1-10.2)
[2017-06-23 08:44] LABS: CHLORIDE 115 MEQ/L (99-109); CREATININE 1.6 MG/DL (0.6-1.3); GFR ESTIMATE (CALCULATED) 35 mL/min/; GLUCOSE 157 mg/dL (70-99); POTASSIUM 4.8 MEQ/L (3.7-5.4); SODIUM 141 MEQ/L (136-147); UREA NITROGEN (BUN) 17 mg/dL (9-23)
[2017-06-23 16:51] VITALS: BP 131/64
[2017-06-23 23:45] VITALS: BP 110/56
[2017-06-24 05:31] LABS: BASOPHIL (%) 0.3 % (0-1); EOSINOPHIL (%) 2.4 % (0-5); EOSINOPHIL COUNT 0.1 K/uL (0-0.3); HEMATOCRIT 23.1 % (36.0-46.0); HEMOGLOBIN 7.8 G/DL (11.9-15.5); IMMATURE GRANULOCYTE (%) 0.3 % (0.0-0.7); LYMPHOCYTE (%) 33.5 % (15-42); LYMPHOCYTE COUNT 1.3 K/uL (1.0-2.8); MCH 33.6 PG (29.0-34.0); MCHC 33.8 G/DL (30.0-36.0); MCV 99.6 FL (83-99); MONOCYTE (%) 9.7 % (3-12); MONOCYTE COUNT 0.4 K/uL (0-0.8); NEUTROPHIL (%) 53.8 % (45-76); NEUTROPHIL COUNT 2.1 K/uL (1.8-6.4); PLATELET COUNT 83 K/uL (156-360); RBC DIS.WIDTH-CV 14.8 % (11.8-14.6); RBC DIS.WIDTH-SD 53.9 % (39-53); RED BLOOD COUNT 2.32 M/uL (3.80-5.20); WHITE BLOOD COUNT 3.8 K/uL (4.1-10.2)
[2017-06-24 07:59] VITALS: BP 114/57
[2017-06-24 08:44] LABS: CHLORIDE 115 MEQ/L (99-109); CREATININE 1.4 MG/DL (0.6-1.3); GFR ESTIMATE (CALCULATED) 40 mL/min/; GLUCOSE 144 mg/dL (70-99); MAGNESIUM 1.7 mg/dl (1.3-2.7); POTASSIUM 4.9 MEQ/L (3.7-5.4); SODIUM 139 MEQ/L (136-147); TOTAL BILIRUBIN 2.8 MG/DL (0.0-1.0); TOTAL PROTEIN 6.4 G/DL (6.4-8.3); UREA NITROGEN (BUN) 16 mg/dL (9-23)
[2017-06-24 08:45] LABS: ALBUMIN 2.7 G/DL (3.2-4.8); ALKALINE PHOSPHATASE 88 IU/L (3-129); ALT (GPT) 45 IU/L (3-49); AST (GOT) 62 IU/L (2-34)
[2017-06-24 16:26] VITALS: BP 128/58
[2017-06-25 00:14] VITALS: BP 111/76
[2017-06-25 07:23] LABS: BASOPHIL (%) 0.3 % (0-1); EOSINOPHIL (%) 2.3 % (0-5); EOSINOPHIL COUNT 0.1 K/uL (0-0.3); HEMATOCRIT 23.1 % (36.0-46.0); HEMOGLOBIN 7.8 G/DL (11.9-15.5); IMMATURE GRANULOCYTE (%) 0.5 % (0.0-0.7); LYMPHOCYTE (%) 30.9 % (15-42); LYMPHOCYTE COUNT 1.2 K/uL (1.0-2.8); MCH 35.1 PG (29.0-34.0); MCHC 33.8 G/DL (30.0-36.0); MONOCYTE (%) 10.5 % (3-12); MONOCYTE COUNT 0.4 K/uL (0-0.8); NEUTROPHIL (%) 55.5 % (45-76); NEUTROPHIL COUNT 2.2 K/uL (1.8-6.4); PLATELET COUNT 76 K/uL (156-360); RBC DIS.WIDTH-SD 56.9 % (39-53); RED BLOOD COUNT 2.22 M/uL (3.80-5.20); WHITE BLOOD COUNT 3.9 K/uL (4.1-10.2)
[2017-06-25 07:24] LABS: MCV 104.1 FL (83-99)
[2017-06-25 07:28] LABS: CHLORIDE 116 MEQ/L (99-109); CREATININE 1.6 MG/DL (0.6-1.3); GFR ESTIMATE (CALCULATED) 35 mL/min/; GLUCOSE 126 mg/dL (70-99); POTASSIUM 4.5 MEQ/L (3.7-5.4); SODIUM 139 MEQ/L (136-147); UREA NITROGEN (BUN) 16 mg/dL (9-23)
[2017-06-25 07:44] VITALS: BP 104/51
[2017-06-25 15:46] VITALS: BP 111/51
[2017-06-25 23:59] VITALS: BP 136/59
[2017-06-26 07:13] LABS: CHLORIDE 114 MEQ/L (99-109); CREATININE 1.4 MG/DL (0.6-1.3); GFR ESTIMATE (CALCULATED) 40 mL/min/; GLUCOSE 123 mg/dL (70-99); POTASSIUM 4.7 MEQ/L (3.7-5.4); SODIUM 139 MEQ/L (136-147); UREA NITROGEN (BUN) 16 mg/dL (9-23)
[2017-06-26 07:32] VITALS: BP 102/40
[2017-06-26 15:50] VITALS: BP 127/60
[2017-06-26 23:48] VITALS: BP 100/52
[2017-06-27 07:19] VITALS: BP 110/54
[2017-06-27 10:35] LABS: CHLORIDE 117 MEQ/L (99-109); POTASSIUM 5.1 MEQ/L (3.7-5.4); SODIUM 139 MEQ/L (136-147)
[2017-06-27 11:00] LABS: CREATININE 1.4 MG/DL (0.6-1.3); GFR ESTIMATE (CALCULATED) 40 mL/min/; UREA NITROGEN (BUN) 16 mg/dL (9-23)
[2017-06-27 11:01] LABS: GLUCOSE 213 mg/dL (70-99)
[2017-06-27] MEDS ORDERED: LASIX20 MG PO (11:10)
[2017-06-27] MEDS ORDERED: GENERLAC10 GM/15 M PO (11:17)
== END 2017-06-27 13:04 | disposition home health service (06) | DRG 442 ==
LOC: EME 10:10 → 5SOUTH 12:56 → EDOF 12:56 → ENRESERV 12:58 → 5SOUTH 14:35
PROVIDERS: Emergency Medicine; Hospitalist; Nurse Practitioner Family; Physician Assistant; Physician Assistant Medical
DX: K72.00 Acute and subacute hepatic failure without coma (principal); N17.9 Acute kidney failure, unspecified; K70.30 Alcoholic cirrhosis of liver without ascites; B18.2 Chronic viral hepatitis C; F10.11 Alcohol abuse, in remission; F41.9 Anxiety disorder, unspecified; Z91.19 Patient's noncompliance with other medical treatment and regimen; F17.200 Nicotine dependence, unspecified, uncomplicated; Z87.11 Personal history of peptic ulcer disease; D69.6 Thrombocytopenia, unspecified; D63.8 Anemia in other chronic diseases classified elsewhere; E87.5 Hyperkalemia; K64.9 Unspecified hemorrhoids; K62.5 Hemorrhage of anus and rectum
CPT/HCPCS: 70450; 80048; 80048 91; 80053; 81003; 82140; 82607; 82746; 83605; 83690; 83735; 84132 91; 85025; 85027; 85610; 93005; 99281; 99285; J1644; J7030

== ENCOUNTER 2017-08-30 17:23 | Inpatient (IN) | payer BC ==
[~2017-08-30] VITALS: Ht 157.5 cm; Wt 57.2 kg
[~2017-08-30 17:23] MED LIST changes: +CIPRO250 MG PO; +GENERLAC10 GM/15 M PO; +K-DUR20 MEQ PO; +LASIX20 MG PO; +LEXAPRO5 MG PO; +PRILOSEC20 MG PO
[2017-08-30 18:10] LABS: HEMATOCRIT 30.1 % (36.0-46.0); HEMOGLOBIN 10.4 G/DL (11.9-15.5); MCH 32.5 PG (29.0-34.0); MCHC 34.6 G/DL (30.0-36.0); MCV 94.1 FL (83-99); PLATELET COUNT 119 K/uL (156-360); RBC DIS.WIDTH-CV 13.8 % (11.8-14.6); RBC DIS.WIDTH-SD 47.5 % (39-53); WHITE BLOOD COUNT 5.9 K/uL (4.1-10.2)
[2017-08-30 18:19] LABS: CHLORIDE 110 mEq/L (99-109); POTASSIUM 4.3 mEq/L (3.7-5.4); SODIUM 141 mEq/L (136-147)
[2017-08-30 18:20] LABS: GLUCOSE 129 mg/dL (70-99)
[2017-08-30 18:24] LABS: CREATININE 2.2 mg/dL (0.6-1.3); GFR ESTIMATE (CALCULATED) 24 mL/min/
[2017-08-30 18:25] LABS: UREA NITROGEN (BUN) 17 mg/dL (9-23)
[2017-08-30 19:17] LABS: ALBUMIN 3.1 g/dL (3.2-4.8)
[2017-08-30 19:20] LABS: TOTAL PROTEIN 7.3 g/dL (6.4-8.3)
[2017-08-30 19:22] LABS: TOTAL BILIRUBIN 2.6 mg/dL (0.0-1.0)
[2017-08-30 19:23] LABS: ALKALINE PHOSPHATASE 127 IU/L (3-129)
[2017-08-30 19:25] LABS: AST (GOT) 27 IU/L (2-34); DIRECT BILIRUBIN 1.4 mg/dL (0.0-0.3)
[2017-08-30 19:26] LABS: ALT (GPT) 16 IU/L (3-49); LIPASE 188 U/L (1.0-51.0)
[2017-08-30] MEDS ORDERED: LASIX20 MG PO (19:39)
[2017-08-30 20:25] LABS: MAGNESIUM 1.9 mg/dL (1.3-2.7)
[2017-08-30 20:26] LABS: BASOPHIL (%) 0.3 % (0-1); EOSINOPHIL (%) 2.7 % (0-5); EOSINOPHIL COUNT 0.2 K/uL (0-0.3); IMMATURE GRANULOCYTE (%) 0.3 % (0.0-0.7); LYMPHOCYTE (%) 37.1 % (15-42); LYMPHOCYTE COUNT 2.2 K/uL (1.0-2.8); MONOCYTE (%) 6.9 % (3-12); MONOCYTE COUNT 0.4 K/uL (0-0.8); NEUTROPHIL (%) 52.7 % (45-76); NEUTROPHIL COUNT 3.2 K/uL (1.8-6.4)
[2017-08-30 20:29] LABS: SERUM ETHYL ALCOHOL < 10 mg/dL
[2017-08-30 20:30] LABS: PHOSPHORUS 4.3 mg/dL (2.5-4.9)
[2017-08-30 22:04] LABS: APPEARANCE CLEAR ((CLEAR)); BILIRUBIN NEGATIVE; BLOOD NEGATIVE; COLOR YELLOW ((YELLOW)); GLUCOSE (STRIP) NEGATIVE; KETONES NEGATIVE; LEUKOCYTES NEGATIVE; NITRITE NEGATIVE; PROTEIN (STRIP) NEGATIVE; SPECIFIC GRAVITY 1.009 (1.000-1.030); UCUL ADDED? NO; UROBILINOGEN 0.2 MG/DL (0.2-1.0)
[2017-08-30 22:27] LABS: BENZODIAZEPINES, URINE SCREEN POSITIVE (200 ng/mL)
[2017-08-30 23:40] VITALS: BP 147/65
[2017-08-31 04:00] VITALS: BP 122/60
[2017-08-31 05:48] LABS: ALBUMIN 2.7 G/DL (3.2-4.8); ALKALINE PHOSPHATASE 90 IU/L (3-129); ALT (GPT) 10 IU/L (3-49); AST (GOT) 19 IU/L (2-34); CHLORIDE 114 MEQ/L (99-109); CREATININE 1.7 MG/DL (0.6-1.3); GFR ESTIMATE (CALCULATED) 32 mL/min/; GLUCOSE 272 mg/dL (70-99); POTASSIUM 4.2 MEQ/L (3.7-5.4); SODIUM 141 MEQ/L (136-147); TOTAL BILIRUBIN 2.5 MG/DL (0.0-1.0); TOTAL PROTEIN 6.2 G/DL (6.4-8.3); UREA NITROGEN (BUN) 15 mg/dL (9-23)
[2017-08-31 07:20] VITALS: BP 128/61
[2017-08-31 11:45] VITALS: BP 149/68
[2017-08-31 16:05] VITALS: BP 144/68
[2017-08-31 20:51] VITALS: BP 121/59
[2017-09-01] VITALS (8 sets, daily range): BP systolic 109–150; BP diastolic 54–74
[2017-09-01 05:27] LABS: INTER. NORMALIZED RATIO 1.3
[2017-09-01 05:47] LABS: MCH 31.7 PG (29.0-34.0); MCHC 33.6 G/DL (30.0-36.0); MCV 94.3 FL (83-99); PLATELET COUNT 99 K/uL (156-360); RBC DIS.WIDTH-CV 13.8 % (11.8-14.6); RBC DIS.WIDTH-SD 47.5 % (39-53); RED BLOOD COUNT 2.65 M/uL (3.80-5.20); WHITE BLOOD COUNT 4.9 K/uL (4.1-10.2)
[2017-09-01 05:57] LABS: ALBUMIN 2.6 G/DL (3.2-4.8); ALKALINE PHOSPHATASE 81 IU/L (3-129); ALT (GPT) 12 IU/L (3-49); AST (GOT) 20 IU/L (2-34); CHLORIDE 118 MEQ/L (99-109); CREATININE 1.5 MG/DL (0.6-1.3); GFR ESTIMATE (CALCULATED) 37 mL/min/; GLUCOSE 154 mg/dL (70-99); POTASSIUM 3.9 MEQ/L (3.7-5.4); SODIUM 142 MEQ/L (136-147); TOTAL BILIRUBIN 2.6 MG/DL (0.0-1.0); TOTAL PROTEIN 6.3 G/DL (6.4-8.3); UREA NITROGEN (BUN) 13 mg/dL (9-23)
[2017-09-01 05:58] LABS: HEMOGLOBIN 8.4 G/DL (11.9-15.5)
[2017-09-02 03:15] VITALS: BP 133/62
[2017-09-02 05:52] LABS: HEMATOCRIT 25.3 % (36.0-46.0); HEMOGLOBIN 8.8 G/DL (11.9-15.5); MCH 32.4 PG (29.0-34.0); MCHC 34.8 G/DL (30.0-36.0); PLATELET COUNT 98 K/uL (156-360); RBC DIS.WIDTH-CV 13.9 % (11.8-14.6); RBC DIS.WIDTH-SD 47.4 % (39-53); RED BLOOD COUNT 2.72 M/uL (3.80-5.20); WHITE BLOOD COUNT 5.5 K/uL (4.1-10.2)
[2017-09-02 06:08] LABS: CHLORIDE 111 MEQ/L (99-109); CREATININE 1.5 MG/DL (0.6-1.3); GFR ESTIMATE (CALCULATED) 37 mL/min/; GLUCOSE 157 mg/dL (70-99); SODIUM 137 MEQ/L (136-147); UREA NITROGEN (BUN) 11 mg/dL (9-23)
[2017-09-02 07:20] VITALS: BP 115/58
[2017-09-02] MEDS ORDERED: SPIRONOLACTONE50 MG PO (11:26)
[2017-09-02] MEDS ORDERED: GENERLAC10 GM/15 M PO (11:26)
[2017-09-02] MEDS ORDERED: MELATONIN3 MG PO (11:38)
[2017-09-02 12:10] VITALS: BP 126/60
[2017-09-02 14:26] LABS: HEMOGLOBIN A1c (GLYCOHEMOGLOB) 5.4 % (Below 5.7)
== END 2017-09-02 14:04 | disposition home or self-care (01) | DRG 433 ==
LOC: EME 17:23 → 4EAST 19:48 → EDOF 19:48 → ENRESERV 19:53 → 4EAST 23:43 → ENPENDDIS 09-02 → 4EAST 09-02 14:04
PROVIDERS: Hospitalist; Internal Medicine; Internal Medicine Gastroenterology; Physician Assistant Medical
DX: K70.40 Alcoholic hepatic failure without coma (principal); K70.31 Alcoholic cirrhosis of liver with ascites; N17.9 Acute kidney failure, unspecified; K70.11 Alcoholic hepatitis with ascites; D69.6 Thrombocytopenia, unspecified; B19.20 Unspecified viral hepatitis C without hepatic coma; R91.8 Other nonspecific abnormal finding of lung field; K76.6 Portal hypertension; R26.81 Unsteadiness on feet; E80.20 Unspecified porphyria; N18.3 Chronic kidney disease, stage 3 (moderate); F17.200 Nicotine dependence, unspecified, uncomplicated; F41.8 Other specified anxiety disorders; K64.9 Unspecified hemorrhoids; D58.9 Hereditary hemolytic anemia, unspecified; F10.21 Alcohol dependence, in remission; Z91.19 Patient's noncompliance with other medical treatment and regimen; Z79.899 Other long term (current) drug therapy; Z76.82 Awaiting organ transplant status; Z83.79 Family history of other diseases of the digestive system; Z87.440 Personal history of urinary (tract) infections; Z87.442 Personal history of urinary calculi; Z87.19 Personal history of other diseases of the digestive system; Z87.11 Personal history of peptic ulcer disease
CPT/HCPCS: 70450; 71046; 76705; 80048; 80053; 80076; 80306 90; 81003; 82140; 82948; 83036; 83605; 83690; 83735; 84100; 85025; 85027; 85610; 95819; 97530 GO; 99281; 99285; G0480; J1815; J7030

== ENCOUNTER → 2017-09-23 | Outpatient (CLI) | payer BC ==
[~2017-09-23] MED LIST changes: +MELATONIN3 MG PO; +SPIRONOLACTONE50 MG PO
[2017-09-23 11:02] LABS: FI02 21 %; PCO2 35 mm Hg (35-45); SITE RR; pH 7.42 (7.35-7.45)
[2017-09-23 11:03] LABS: BASE EXCESS -1.4 mEq/L (-3 to +3); BICARBONATE 22.7 mEq/L (22-26); METHEMOGLOBIN 0.9 % (0-1.5); PO2 76 mm Hg (80-100)
== END | disposition home or self-care (01) ==
LOC: RES 10:36
PROVIDERS: Internal Medicine Hepatology
DX: Z01.811 Encounter for preprocedural respiratory examination (principal)
CPT/HCPCS: 36600; 82803; 94060; 94726; 94729